=== PATIENT | female | born 1935 | race Caucasian/White ===

== ENCOUNTER 2018-05-23 11:24 | Emergency (ER) | payer MEDICARE, BC, OTHER ==
[2018-05-23] MEDS ORDERED: Sodium Chloride 0.9% 10 ML Syringe FLUSH PRN (11:54)
--- NOTE | 2018-05-23 11:54 | EDM.PDOC ---
ED HPI GENERAL MEDICAL PROBLEM - General Chief Complaint: Cardiovascular Problem Stated Complaint: LIGHTHEADED/LEGS SWOLLEN Time Seen by Provider: 05/23/18 11:27 Source of Information: Reports: Patient History Limitations: Reports: No Limitations - History of Present Illness INITIAL COMMENTS - FREE TEXT/NARRATIVE: 82-year-old female presents to the ED simply because she is not feeling well this morning. He's noticed over the last 24-36 hours that she is developed increased dyspnea on minimal exertion. She states was up a good portion of the night feeling short of breath with a nonproductive cough. Denies any central chest discomfort in the last few days. She has been traveling fairly extensively both by car and airplane for the last week and a half. She is to appreciate a appreciated increased swelling in her lower extremities feels that her vision is a bit off as well. Patient recently had her medications changed for blood pressure. She continues on amlodipine 7.5 mg a day. Valsartan was discontinued and changed to losartan within the last week. Her initial blood pressure here is elevated at 202/91. She is anxious. O2 sats are 96% on room air. She is mildly tachypneic at 22/m. Onset: Gradual Onset Date: 05/21/18 Duration: Day(s):, Getting Worse Location: Reports: Chest, Generalized (Feeling more short of breath on minimal exertion with a nonproductive cough. Increased swelling of her lower extremities but did go down a bit overnight but seemed to swell right away as soon as she was up for an hour this morning. Associated feeling of being somewhat lightheaded with blurred vision intermittently. No headache no nausea or vomiting.) Severity: Moderate Improves with: Reports: Rest Worsens with: Reports: Other (When she is up and about. Torsion such as getting dressed or having a shower seemed to make her short of breath today. She has no past history of congestive heart failure) Context: Reports: Activity. Denies: Exercise, Lifting, Sick Contact, Trauma, Other Associated Symptoms: Reports: Cough, Loss of Appetite, Malaise (Nonproductive), Shortness of Breath, Weakness (Mild), Other (Lower extremity swelling.). Denies : Confusion, Chest Pain, cough w sputum, Diaphoresis, Fever/Chills, Headaches, Nausea/Vomiting, Rash, Seizure, Syncope Treatments EXHIBIT ARTIST: Reports: Other (see below) Other Treatments EXHIBIT ARTIST: b/p meds this morning - Related Data Allergies Allergy/AdvReac Type Severity Reaction Status Date / Time No Known Allergies Allergy Verified 09/04/14 15:39 Home Meds: Home Meds amLODIPine [Norvasc] 7.5 mg PO DAILY 04/21/14 [History] Losartan [Cozaar] 50 mg PO DAILY 05/23/18 [History] Rivaroxaban [Xarelto] 15 mg PO BID #42 tablet 05/23/18 [Rx] Rivaroxaban [Xarelto] 20 mg PO DAILY #30 tablet 05/23/18 [Rx] Past Medical History Cardiovascular History: Reports: Hypertension Respiratory History: Reports: COPD (Mild COPD quit smoking 41 years ago), Pneumonia, Recurrent Gastrointestinal History: Reports: Chronic Constipation, GERD Musculoskeletal History: Reports: Arthritis, Other (See Below) Other Musculoskeletal History: bunionectomy - Past Surgical History HEENT Surgical History: Reports: Cataract Surgery, Tonsillectomy Social & Family History - Tobacco Use Smoking Status *Q: Former Smoker (Quit 40 years ago.) - Caffeine Use Caffeine Use: Reports: Coffee, Soda, Tea - Alcohol Use Alcohol Use in Last Twelve Months: No Alcohol Use Frequency: Not Used in Over 1 Year (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 Denies : Fever, Chills, Weight Loss HEENT: Reports: Glasses, Other (She has had bilateral cataract extractions and intraocular lens implants. She states since that time her vision has not been very good in her right eye.) Respiratory: Reports: Shortness of Breath, Cough. Denies: Wheezing, Pleuritic Chest Pain, Sputum, Hemoptysis (Nonproductive cough) Cardiovascular: Reports: Blood Pressure Problem, Dyspnea on Exertion (Increased lower extremity edema noted over the last 3-5 days.), Edema, Lightheadedness. Denies: Claudication (Chronic hypertension), Orthopnea, Palpitations ( Nail on minimal exertion which is abnormal for her.) Endocrine: Reports: Fatigue GI/Abdominal: Reports: Decreased Appetite. Denies: Abdominal Pain, Anorexia : Reports: Frequency, Incontinence (Some stress incontinence) Musculoskeletal: Reports: Back Pain, Joint Pain (Arthritic pain back knees) Skin: Reports: No Symptoms Neurological: Reports: Dizziness, Weakness. Denies: Headache, Pre-Existing Deficit, Seizure, Syncope, Trouble Speaking, Difficulty Walking Psychiatric: Reports: Anxiety Hematologic/Lymphatic: Reports: No Symptoms Immunologic: Reports: No Symptoms ED EXAM, GENERAL - Physical Exam Exam: See Below Exam Limited By: No Limitations General Appearance: Alert, WD/WN, Anxious, Other (Vital signs show BP now is 1 8897.) Eye Exam: Bilateral Eye: Normal Inspection (Previous bilateral cataract extractions and intraocular lens implants.) Throat/Mouth: Normal Inspection, Normal Lips, Normal Oropharynx, Other Head: Atraumatic, Normocephalic Neck: Normal Inspection (Tongue is moist.), Limited Range of Motion, Tender Lateral (Mild arthritic changes in her cervical spine on palpation bilaterally.) Respiratory/Chest: Normal Breath Sounds, Respiratory Distress (She has mild tachypnea on examination.). No: Chest Non-Tender, Rales, Rhonchi, Wheezing Cardiovascular: Normal Peripheral Pulses, Regular Rate, Rhythm, No JVD, No Murmur. No: No Edema Peripheral Pulses: 1+: Posterior Tibial (L), Posterior Tibial (R), Dorsalis Pedis (L), Dorsalis Pedis (R) GI/Abdominal: Normal Bowel Sounds, Soft, Non-Tender, No Organomegaly, No Abnormal Bruit, No Mass, Pelvis Stable. No: Tender Back Exam: Normal Inspection, Full Range of Motion. No: CVA Tenderness (L), CVA Tenderness (R) Extremities: Normal Inspection, Normal Range of Motion, Non-Tender, Pedal Edema (1-2+ pitting edema both lower extremities to mid tib-fib.), Other (On palpation of her calves and posterior knees I could not identify any DVT clinically.) Neurological: Alert, Oriented, CN II-XII Intact, Normal Cognition, No Motor/ Sensory Deficits Psychiatric: Anxious Skin Exam: Warm, Dry, Intact, Normal Color, No Rash EKG INTERPRETATION EKG Date: 05/23/18 Time: 12:00 Rhythm: NSR Rate (Beats/Min): 80 Woody: LAD-Left Woody Deviation (-41 left anterior fascicular block) P-Wave: Present (With first-degree AV block.) QRS: Other (There are Q waves in V1 and V2 suggestive of an old anteroseptal myocardial infarction. There are near Q waves in leads 3 and aVF consider a possible old inferior wall myocardial infarction.) ST-T: Normal QT: Normal EKG Interpretation Comments: Abnormal ECG Course - Vital Signs Last Recorded V/S: Last Vital Signs Temp 36.9 C 05/23/18 11:42 Pulse 78 05/23/18 11:42 Resp 20 05/23/18 11:42 BP 188/97 H 05/23/18 11:42 Pulse Ox 96 05/23/18 11:42 - Orders/Labs/Meds Orders: Active Orders 24 hr Category Date Time Status EKG Documentation Completion [RC] STAT Care 05/23/18 11:54 Active Peripheral IV Care [RC] . DIRECTED Care 05/23/18 11:55 Active Chest 1V Frontal [CR] Stat Exams 05/23/18 11:54 Taken Chest PE [Ang Chest] [CT] Stat Exams 05/23/18 12:59 Taken Venous Doppler Lwr Ext Bi [US] Stat Exams 05/23/18 14:12 Taken Peripheral IV Insertion Adult [OM.PC] Stat Oth 05/23/18 11:55 Ordered Labs: Laboratory Tests 05/23/18 05/23/18 05/23/18 Range/Units 11:45 11:45 11:45 WBC 7.09 (3.98-10.04) K/mm3 RBC 4.38 (3.98-5.22) M/mm3 Hgb 13.5 (11.2-15.7) gm/L Hct 40.5 (34.1-44.9) % MCV 92.5 (79.4-94.8) fl MCH 30.8 (25.6-32.2) pg MCHC 33.3 (32.2-35.5) g/dl RDW Std Deviation 44.7 (36.4-46.3) fL Plt Count 265 (182-369) K/mm3 MPV 8.5 L (9.4-12.3) fl Neutrophils % (Manual) 52 (40-60) % Band Neutrophils % 0 (0-10) % Lymphocytes % (Manual) 43 H (20-40) % Atypical Lymphs % 0 % Monocytes % (Manual) 5 (2-10) % Eosinophils % (Manual) 0 L (0.7-5.8) % Basophils % (Manual) 0 L (0.1-1.2) Platelet Estimate Adequate RBC Morph Comment Normal D-Dimer, Quantitative (0.19-0.50) mg/L Sodium 140 (136-145) mEq/L Potassium 4.1 (3.5-5.1) mEq/L Chloride 104 (98-107) mEq/L Carbon Dioxide 28 (21-32) mEq/L Anion Gap 12.1 (5-15) BUN 16 (7-18) mg/dL Creatinine 1.1 H (0.55-1.02) mg/dL Est Cr Clr Drug Dosing 31.72 mL/min Estimated GFR (MDRD) 48 (>60) mL/min BUN/Creatinine Ratio 14.5 (14-18) Glucose 105 (83-115) mg/dL Calcium 9.3 (8.5-10.1) mg/dL Magnesium 1.9 (1.8-2.4) mg/dl Total Bilirubin 0.8 (0.2-1.0) mg/dL AST 16 (15-37) U/L ALT 28 (14-59) U/L Alkaline Phosphatase 39 L (46-116) U/L CK-MB (CK-2) 1.3 (0-3.6) ng/ml Troponin I < 0.017 (0.00-0.056) ng/mL C-Reactive Protein < 0.2 (<1.0) mg/dL NT-Pro-B Natriuret Pep 318 (0-450) pg/mL Total Protein 6.8 (6.4-8.2) g/dl Albumin 3.6 (3.4-5.0) g/dl Globulin 3.2 gm/dL Albumin/Globulin Ratio 1.1 (1-2) TSH 3rd Generation 2.941 (0.358-3.74) uIU/mL 05/23/18 Range/Units 11:45 WBC (3.98-10.04) K/mm3 RBC (3.98-5.22) M/mm3 Hgb (11.2-15.7) gm/L Hct (34.1-44.9) % MCV (79.4-94.8) fl MCH (25.6-32.2) pg MCHC (32.2-35.5) g/dl RDW Std Deviation (36.4-46.3) fL Plt Count (182-369) K/mm3 MPV (9.4-12.3) fl Neutrophils % (Manual) (40-60) % Band Neutrophils % (0-10) % Lymphocytes % (Manual) (20-40) % Atypical Lymphs % % Monocytes % (Manual) (2-10) % Eosinophils % (Manual) (0.7-5.8) % Basophils % (Manual) (0.1-1.2) Platelet Estimate RBC Morph Comment D-Dimer, Quantitative 4.19 H (0.19-0.50) mg/L Sodium (136-145) mEq/L Potassium (3.5-5.1) mEq/L Chloride (98-107) mEq/L Carbon Dioxide (21-32) mEq/L Anion Gap (5-15) BUN (7-18) mg/dL Creatinine (0.55-1.02) mg/dL Est Cr Clr Drug Dosing mL/min Estimated GFR (MDRD) (>60) mL/min BUN/Creatinine Ratio (14-18) Glucose (83-115) mg/dL Calcium (8.5-10.1) mg/dL Magnesium (1.8-2.4) mg/dl Total Bilirubin (0.2-1.0) mg/dL AST (15-37) U/L ALT (14-59) U/L Alkaline Phosphatase (46-116) U/L CK-MB (CK-2) (0-3.6) ng/ml Troponin I (0.00-0.056) ng/mL C-Reactive Protein (<1.0) mg/dL NT-Pro-B Natriuret Pep (0-450) pg/mL Total Protein (6.4-8.2) g/dl Albumin (3.4-5.0) g/dl Globulin gm/dL Albumin/Globulin Ratio (1-2) TSH 3rd Generation (0.358-3.74) uIU/mL Meds: Medications Discontinued Medications Generic Name Dose Route Start Last Admin Trade Name Freq PRN Reason Stop Dose Admin Sodium Chloride 100 mls @ 60 mls/hr 05/23/18 13:15 05/23/18 13:18 Normal Saline IV 60 mls/hr ASDIRECTED JEEVAN Administration Iopamidol 100 ml 05/23/18 13:06 05/23/18 13:18 Isovue-370 (76%) IVPUSH 05/23/18 13:07 70 ml ONETIME ONE Administration Rivaroxaban 15 mg 05/23/18 16:10 05/23/18 16:16 Xarelto PO 05/23/18 16:11 15 mg ONETIME ONE Administration Sodium Chloride 10 ml 05/23/18 11:54 05/23/18 16:07 Saline Flush FLUSH 10 ml ASDIRECTED PRN Administration Keep Vein Open Sodium Chloride 10 ml 05/23/18 13:06 05/23/18 13:18 Saline Flush FLUSH 05/23/18 13:07 10 ml ONETIME ONE Administration - Radiology Interpretation Free Text/Narrative:: 82-year-old female presents to the ED for assessment of a sense of not feeling well. She feels a little lightheaded dizzy. She feels a little blurred vision. She is aware of it development of a nonproductive cough over the last 24 hours with shortness of breath on minimal exertion. Associated increased dependent edema. Of note her and her just came back from [place] traveling both by plane and vehicle over the last [address] her at mild risk for DVT. She has no past history of the same. No history of congestive failure. Only changed her medications have been valsartan discontinuation and replacement with losartan 50 mg a day. Is within the last week. She didn't sleep very well because of feeling more short of breath than normal and awakening i.e. orthopnea. Denies any hemoptysis. No pleuritic chest pain. Examination reveals her to be tachypnea at 20-22/m with O2 sats of 96%. Lungs do sound clear to stage percussion with no elevated JVD. She does have mild dependent edema seen her lower extremities mid tib-fib. Plan routine labs to include a d-dimer and cardiac workup. One view chest x-ray and ECG to be done. Peripheral IV lock only at this time. I suspect she will need a dose Lasix. - Re-Assessments/Exams Free Text/Narrative Re-Assessment/Exam: 05/23/18 12:26 portable chest x-ray is completed. Shows mildly hyperinflated lung enriquez. Cardiac silhouette is within normal limits. She does appear to have a very prominent mid thoracic aorta suspect possible aneurysm. Lab just called back with the critical value as well. Her d-dimer is 4.19. Will await her creatinine level before proceeding with CT pulmonary angiogram 05/23/18 12:58 Labs are back. WBC is 7.09 with 52% neutrophils and no band cells reported. Hemoglobin is 13.5 with hematocrit of 40.5. Platelet count is normal at 265,000. D-dimer is elevated at 4.19. Sodium 140 with potassium of 4.1. Cord 104 with a bicarbonate of 28. Anion gap is 12.1. BUN is 16 with a creatinine of 1.1. GFR is estimated to be 48. Glucose is 105. Calcium is 9.3. Magnesium 1.9. Liver function is normal. Cardiac markers are normal. C-reactive protein is less than 0.2. BNP is 318. TSH is normal at 2.9. Patient was appraised of the findings. She is agreeable to CT pulmonary angiogram completed. No previous problems with IV contrast Patient will now proceed to CT for CT pulmonary angiogram due to the elevated d-dimer and symptoms that would support a diagnosis of DVT. On further questioning of the patient she did have some pain behind her knee 3 days ago on the left side. 05/23/18 14:13 CT pulmonary and gram has been completed. There is no evidence of pulmonary emboli. There is aneurysmal dilatation of the ascending thoracic aorta measuring up to 3.3 cm. This was appreciated on plain films. There is also aneurysmal dilatation of the suprarenal abdominal aorta however this is only partially imaged. The vasculature demonstrates diffuse moderate atherosclerotic calcification. The lungs reveal a 5 mm pulmonary nodule within the left upper lobe posteriorly 5 mm nodule noted within the right lower lobe as well. Several other tiny nodules are noted bilaterally. The lungs are hyperinflated consistent with diffuse underlying small airways disease. A letter changes are present within both lung bases. The heart demonstrates moderate diffuse enlargement. In side bilateral thyroid nodules are present measuring up to 9 mm on the right. Thoracic spine demonstrates moderate degenerative changes at multiple levels. Current BP is 174/92. O2 sats are 94% on room air. Since I am no way of explaining the elevated d-dimer I'm going to have ultrasound of both lower extremity venous systems to rule out a DVT. 05/23/18 16:11 Doppler ultrasound of the right venous system in her leg is normal. Doppler ultrasound on the left however did identify clot in the posterior tibial vein extending up to the popliteal vein. His would explain her current symptoms. I suspect she still has been showering some emboli to cause dyspnea on exertion. The question then is to how long to treat her with Xarelto to 3 months versus 6 months. Impression is that she should probably be treated for 6 months. Suture travel I would advise a baby aspirin twice daily with Prilosec as well to prevent a clot from occurring in the future. Patient will be placed on Xarelto 20 mg twice a day for the next 3 weeks and then 20 mg once daily. Of note I forgot to advise the patient of the findings on CT of a thoracic aortic aneurysm of 3.3 cm which at her age would not necessarily be repairable. However the radiologist commented that he identified that there is probably mild aneurysmal dilatation of the superior renal portion of the aorta as well which should be further imaged by way of ultrasound and followed on a yearly basis. I will leave this up to her primary care physician. Departure - Departure Time of Disposition: 16:13 Disposition: Home, Self-Care 01 Condition: Fair Clinical Impression: Dyspnea on exertion, Descending thoracic aortic aneurysm, Suprarenal aortic aneurysm DVT (deep venous thrombosis) Qualifiers: DVT location: lower extremity Affected thrombotic vein of extremity: popliteal Chronicity: acute Laterality: left Qualified Code(s): I82.432 - Acute embolism and thrombosis of left popliteal vein Prescriptions: Rivaroxaban [Xarelto] 15 mg PO BID #42 tablet Rivaroxaban [Xarelto] 20 mg PO DAILY #30 tablet Instructions: Rivaroxaban oral tablets, Deep Vein Thrombosis Referrals: Gamaliel Jacobs MD [Primary Care Provider] - Forms: ED Department Discharge Additional Instructions: Evaluation in the emergency room today in regards to presentation due to just generally not feeling well. Recognize shortness of breath on minimal exertion. Feeling much more fatigued than normal. Recent travel history felt to be contributing to increased swelling in the lower extremities. Recently reported pain behind her left knee 3 days ago as well. Lab tests revealed no evidence of any heart failure or any other major abnormalities other than an elevated d- dimer which is a measuring stick for clotting. Due to your symptom process decision made to proceed with CT pulmonary and gram to rule out a clot within your lungs. This tests proved to be negative for any major clots in the central portions of the major lung arteries. However ultrasound done of both legs revealed a clot within the posterior aspect of your left leg i.e. in the calf and behind her left knee that would explain the elevated d-dimer. I strongly suspect that part of the clot have been breaking off over the last few days and going through the lungs and that's what's creating your shortness of breath on minimal exertion. Treatment is therefore a medication called Xarelto which is a blood thinner to prevent further clot formation and propagation of clot. Treatment is 15 mg twice daily for the first 3 weeks and then 20 mg once daily for another 5 months. Follow-up with your personal care physician within the next 7-10 days time. Continue all current medications in regards to blood pressure at this time. Her blood pressure seems to be running is still a bit on the high side and you may need further adjustments to your blood pressure medication. Due to the stress of today I did not feel it was prudent to change blood pressure medications until current stress situation settles down. - My Orders Last 24 Hours: My Active Orders 05/23/18 11:54 EKG Documentation Completion [RC] STAT Chest 1V Frontal [CR] Stat 05/23/18 11:55 Peripheral IV Care [RC] . DIRECTED Peripheral IV Insertion Adult [OM.PC] Stat 05/23/18 12:59 Chest PE [Ang Chest] [CT] Stat 05/23/18 14:12 Venous Doppler Lwr Ext Bi [US] Stat - Assessment/Plan Last 24 Hours: My Active Orders 05/23/18 11:54 EKG Documentation Completion [RC] STAT Chest 1V Frontal [CR] Stat 05/23/18 11:55 Peripheral IV Care [RC] . DIRECTED Peripheral IV Insertion Adult [OM.PC] Stat 05/23/18 12:59 Chest PE [Ang Chest] [CT] Stat 05/23/18 14:12 Venous Doppler Lwr Ext Bi [US] Stat
[2018-05-23] MEDS ORDERED: Iopamidol 755 Mg/ML 100 ML Bottle IVPUSH ONE (13:06)
[2018-05-23] MEDS ORDERED: Sodium Chloride 0.9% 10 ML Syringe FLUSH ONE (13:06)
[2018-05-23] MEDS ORDERED: Sodium Chloride 0.9% 100 ML IV SCH (13:15)
[2018-05-23] MEDS ORDERED: Rivaroxaban 10 MG Tab PO ONE (16:10)
== END 2018-05-23 16:30 | disposition home or self-care (01) ==
LOC: JD.ED 11:24
DX: I82.432 Acute embolism and thrombosis of left popliteal vein (principal); I71.2 Thoracic aortic aneurysm, without rupture; I10 Essential (primary) hypertension; J44.9 Chronic obstructive pulmonary disease, unspecified; Z87.891 Personal history of nicotine dependence; Z79.899 Other long term (current) drug therapy
CPT/HCPCS: 36415; 71045; 71275; 80053; 82553; 83735; 83880; 84443; 84484; 85007; 85027; 85379; 86140; 93005; 93970; 99285; A9270; J7030; J7050; Q9967

== ENCOUNTER 2018-05-25 14:34 | Emergency (ER) | payer MEDICARE, BC, OTHER ==
[2018-05-25] MEDS ORDERED: Sodium Chloride 0.9% 10 ML Syringe FLUSH PRN (14:44)
[2018-05-25] MEDS ORDERED: HYDROmorphone 0.5 MG/0.5 ML SYRINGE IVPUSH ONE (15:14)
[2018-05-25] MEDS ORDERED: Ondansetron 4 MG/2 ML SDV IVPUSH ONE (15:14)
--- NOTE | 2018-05-25 15:14 | EDM.PDOC ---
ED HPI GENERAL MEDICAL PROBLEM - General Chief Complaint: Neurological Problem Stated Complaint: SHAKY/FEVER Time Seen by Provider: 05/25/18 14:44 Source of Information: Reports: Patient History Limitations: Reports: No Limitations - History of Present Illness INITIAL COMMENTS - FREE TEXT/NARRATIVE: The patient presents with a severe headache and shaking. Her last time known well was 05/24/18 at 11 am. She was seen here 2 days ago and was diagnosed with a DVT in her left leg. She had been traveling by plane and car from [place] and did not feel well. She has been more short of breath for the past few days. She had a CT of her chest, x-ray, labs and an US of her legs. She had no pneumonia or PE but she did have the DVT. She was put on xarelto and discharged home. She then developed shaking on both sides of her body but more on the left. She has generalized weakness and she feels like she may have a fever. She has no cough, chest pain, abdominal pain, nausea or vomiting. She still has some shortness of breath at times. She has no dysuria. Onset: Gradual Duration: Day(s): (2) Location: Reports: Head Quality: Reports: Sharp Severity: Severe Improves with: Reports: None Worsens with: Reports: None Associated Symptoms: Reports: Fever/Chills, Headaches, Nausea/Vomiting, Shortness of Breath. Denies: Confusion, Chest Pain, Cough Headache Pain Score (Numeric/FACES): 10 - Related Data Allergies Allergy/AdvReac Type Severity Reaction Status Date / Time No Known Allergies Allergy Verified 05/25/18 14:52 Home Meds: Home Meds amLODIPine [Norvasc] 7.5 mg PO DAILY 04/21/14 [History] Losartan [Cozaar] 50 mg PO DAILY 05/23/18 [History] Rivaroxaban [Xarelto] 15 mg PO BID #42 tablet 05/23/18 [Rx] Rivaroxaban [Xarelto] 20 mg PO DAILY #30 tablet 05/23/18 [Rx] Past Medical History Cardiovascular History: Reports: Hypertension Respiratory History: Reports: COPD (Mild COPD quit smoking 41 years ago), Pneumonia, Recurrent Gastrointestinal History: Reports: Chronic Constipation, GERD Musculoskeletal History: Reports: Arthritis, Other (See Below) Other Musculoskeletal History: bunionectomy - Past Surgical History HEENT Surgical History: Reports: Cataract Surgery, Tonsillectomy Social & Family History - Caffeine Use Caffeine Use: Reports: Coffee, Soda, Tea - Living Situation & Occupation Living situation: Reports: Occupation: Retired ED ROS GENERAL - Review of Systems Review Of Systems: See Below Constitutional: Reports: Fever, Chills HEENT: Reports: No Symptoms Respiratory: Reports: Shortness of Breath Cardiovascular: Reports: No Symptoms Endocrine: Reports: No Symptoms GI/Abdominal: Reports: No Symptoms : Reports: No Symptoms Musculoskeletal: Reports: No Symptoms Skin: Reports: No Symptoms Neurological: Reports: Headache, Other (shaking) ED EXAM, NEURO - Physical Exam Exam: See Below Exam Limited By: No Limitations General Appearance: Alert, No Apparent Distress Ears: Normal External Exam Nose: Normal Inspection Head Exam: Atraumatic, Normocephalic Neck: Normal Inspection Respiratory/Chest: No Respiratory Distress, Lungs Clear, Normal Breath Sounds Cardiovascular: Regular Rate, Rhythm, No Edema, No Murmur GI/Abdominal: Soft, Non-Tender, No Organomegaly, No Mass Neurological: Alert, Other (The patient has generalized shaking. She has generalized weakness. She has abnormal finger to nose with both arms but the left was slightly worse. She had slighty worse heal to tompkins on the left.) EKG INTERPRETATION EKG Date: 05/25/18 Time: 14:50 Rhythm: NSR Rate (Beats/Min): 84 [place]: LAD-Left [place] Deviation P-Wave: Present QRS: Normal ST-T: Normal QT: Normal CT/PQ Interval: 1st degree HB EKG Interpretation Comments: Q waves in the anterior leads Course - Vital Signs Last Recorded V/S: Last Vital Signs Temp 98 F 05/25/18 14:56 Pulse 86 05/25/18 14:56 Resp 24 H 05/25/18 14:56 BP 206/109 H 05/25/18 14:56 Pulse Ox 96 05/25/18 14:56 - Orders/Labs/Meds Orders: Active Orders 24 hr Category Date Time Status Blood Glucose Check, Bedside [RC] ONETIME Care 05/25/18 14:46 Active Cardiac Monitoring [RC] . DIRECTED Care 05/25/18 14:44 Active EKG Documentation Completion [RC] STAT Care 05/25/18 14:45 Active Oxygen Therapy [RC] PRN Care 05/25/18 14:44 Active Peripheral IV Care [RC] . DIRECTED Care 05/25/18 14:45 Active Chest 1V Frontal [CR] Stat Exams 05/25/18 14:45 Taken Head wo Cont [CT] Stat Exams 05/25/18 14:45 Taken UA W/MICROSCOPIC [URIN] Stat Lab 05/25/18 15:20 Ordered Sodium Chloride 0.9% [Saline Flush] Med 05/25/18 14:44 Active 10 ml FLUSH ASDIRECTED PRN Peripheral IV Insertion Adult [OM.PC] Stat Oth 05/25/18 14:44 Ordered Medication Orders Sodium Chloride (Saline Flush) 10 ml FLUSH ASDIRECTED PRN PRN Reason: Keep Vein Open Last Admin: 05/25/18 15:41 Dose: 10 ml Labs: Laboratory Tests 05/25/18 05/25/18 05/25/18 Range/Units 14:43 14:45 14:45 WBC 8.70 (3.98-10.04) K/mm3 RBC 4.83 (3.98-5.22) M/mm3 Hgb 14.8 (11.2-15.7) gm/L Hct 44.8 (34.1-44.9) % MCV 92.8 (79.4-94.8) fl MCH 30.6 (25.6-32.2) pg MCHC 33.0 (32.2-35.5) g/dl RDW Std Deviation 45.5 (36.4-46.3) fL Plt Count 294 (182-369) K/mm3 MPV 8.3 L (9.4-12.3) fl Neut % (Auto) 57.9 (34.0-71.1) % Lymph % (Auto) 24.1 (19.3-51.7) % [place] % (Auto) 14.0 H (4.7-12.5) % Eos % (Auto) 3.4 (0.7-5.8) Baso % (Auto) 0.3 (0.1-1.2) % Neut # (Auto) 5.02 (1.56-6.13) K/mm3 Lymph # (Auto) 2.10 (1.18-3.74) K/mm3 [place] # (Auto) 1.22 H (0.24-0.36) K/mm3 Eos # (Auto) 0.30 (0.04-0.36) K/mm3 Baso # (Auto) 0.03 (0.01-0.08) K/mm3 PT (9.5-12.1) SECONDS INR APTT (24-31) SECONDS Sodium 137 (136-145) mEq/L Potassium 4.2 (3.5-5.1) mEq/L Chloride 98 (98-107) mEq/L Carbon Dioxide 28 (21-32) mEq/L Anion Gap 15.2 H (5-15) BUN 18 (7-18) mg/dL Creatinine 1.2 H (0.55-1.02) mg/dL Est Cr Clr Drug Dosing 34.42 mL/min Estimated GFR (MDRD) 43 (>60) mL/min BUN/Creatinine Ratio 15.0 (14-18) Glucose 97 (83-115) mg/dL POC Glucose 97 (83-110) mg/dL Calcium 10.2 H (8.5-10.1) mg/dL Total Bilirubin 1.0 (0.2-1.0) mg/dL AST 27 (15-37) U/L ALT 36 (14-59) U/L Alkaline Phosphatase 43 L (46-116) U/L Troponin I < 0.017 (0.00-0.056) ng/mL Total Protein 7.8 (6.4-8.2) g/dl Albumin 4.1 (3.4-5.0) g/dl Globulin 3.7 gm/dL Albumin/Globulin Ratio 1.1 (1-2) Urine Color (Yellow) Urine Appearance (Clear) Urine pH (5.0-8.0) Ur Specific [place] (1.005-1.030) Urine Protein (Negative) Urine Glucose (UA) (Negative) Urine Ketones (Negative) Urine Occult Blood (Negative) Urine Nitrite (Negative) Urine Bilirubin (Negative) Urine Urobilinogen (0.2-1.0) Ur Leukocyte Esterase (Negative) Urine RBC (0-5) /hpf Urine WBC (0-5) /hpf Ur Epithelial Cells (0-5) /hpf Urine Bacteria (FEW) /hpf Urine Mucus (FEW) /hpf 05/25/18 05/25/18 Range/Units 15:05 15:20 WBC (3.98-10.04) K/mm3 RBC (3.98-5.22) M/mm3 Hgb (11.2-15.7) gm/L Hct (34.1-44.9) % MCV (79.4-94.8) fl MCH (25.6-32.2) pg MCHC (32.2-35.5) g/dl RDW Std Deviation (36.4-46.3) fL Plt Count (182-369) K/mm3 MPV (9.4-12.3) fl Neut % (Auto) (34.0-71.1) % Lymph % (Auto) (19.3-51.7) % [place] % (Auto) (4.7-12.5) % Eos % (Auto) (0.7-5.8) Baso % (Auto) (0.1-1.2) % Neut # (Auto) (1.56-6.13) K/mm3 Lymph # (Auto) (1.18-3.74) K/mm3 [place] # (Auto) (0.24-0.36) K/mm3 Eos # (Auto) (0.04-0.36) K/mm3 Baso # (Auto) (0.01-0.08) K/mm3 PT 12.4 H (9.5-12.1) SECONDS INR 1.14 APTT 33 H (24-31) SECONDS Sodium (136-145) mEq/L Potassium (3.5-5.1) mEq/L Chloride (98-107) mEq/L Carbon Dioxide (21-32) mEq/L Anion Gap (5-15) BUN (7-18) mg/dL Creatinine (0.55-1.02) mg/dL Est Cr Clr Drug Dosing mL/min Estimated GFR (MDRD) (>60) mL/min BUN/Creatinine Ratio (14-18) Glucose (83-115) mg/dL POC Glucose (83-110) mg/dL Calcium (8.5-10.1) mg/dL Total Bilirubin (0.2-1.0) mg/dL AST (15-37) U/L ALT (14-59) U/L Alkaline Phosphatase (46-116) U/L Troponin I (0.00-0.056) ng/mL Total Protein (6.4-8.2) g/dl Albumin (3.4-5.0) g/dl Globulin gm/dL Albumin/Globulin Ratio (1-2) Urine Color Yellow (Yellow) Urine Appearance Clear (Clear) Urine pH 7.0 (5.0-8.0) Ur Specific [place] 1.015 (1.005-1.030) Urine Protein Negative (Negative) Urine Glucose (UA) Negative (Negative) Urine Ketones Negative (Negative) Urine Occult Blood Negative (Negative) Urine Nitrite Negative (Negative) Urine Bilirubin Negative (Negative) Urine Urobilinogen 0.2 (0.2-1.0) Ur Leukocyte Esterase Negative (Negative) Urine RBC Not seen (0-5) /hpf Urine WBC 0-5 (0-5) /hpf Ur Epithelial Cells 0-5 (0-5) /hpf Urine Bacteria Not seen (FEW) /hpf Urine Mucus Not seen (FEW) /hpf Meds: Medications Generic Name Dose Route Start Last Admin Trade Name Freq PRN Reason Stop Dose Admin Sodium Chloride 10 ml 05/25/18 14:44 05/25/18 15:41 Saline Flush FLUSH 10 ml ASDIRECTED PRN Administration Keep Vein Open Discontinued Medications Generic Name Dose Route Start Last Admin Trade Name Freq PRN Reason Stop Dose Admin Hydromorphone HCl 0.5 mg 05/25/18 15:14 05/25/18 15:41 Dilaudid IVPUSH 05/25/18 15:15 0.5 mg ONETIME ONE Administration Ondansetron HCl 4 mg 05/25/18 15:14 05/25/18 15:39 Zofran IVPUSH 05/25/18 15:15 4 mg ONETIME ONE Administration - Re-Assessments/Exams Free Text/Narrative Re-Assessment/Exam: 05/25/18 15:23 I ordered an IV saline lock, EKG, CT of her head, labs, UA, zofran 4mg IV and dilaudid 0.5mg IV. 05/25/18 16:12 Her CBC looks good. Her PT was elevated at 12.4. Her PTT is elevated at 33. Her anion gap is elevated at 15.2. Her creatinine is slightly elevated at 1.2. Her troponin is negative. Her UA shows no UTI. Her CXR does not show an infiltrated. Her CT shows nothing acute. I did give her some zofran 4mg IV for nausea and a dose of dilaudid for her headache. He blood pressure is better at 144 systolic. I am concerned she may have had a stroke. She will need further work up such as MRI of her brain and US of her carotids and echo. We are limited in those resources. She again is outside the range for thrombolytics. She was last known well 2 days ago at 11am on 05/24/18. 05/25/18 16:16 Departure - Departure Time of Disposition: 16:20 Disposition: DC/Tfer to Acute Hospital 02 Condition: Fair Clinical Impression: Descending thoracic aortic aneurysm, Suprarenal aortic aneurysm DVT (deep venous thrombosis) Qualifiers: DVT location: lower extremity Affected thrombotic vein of extremity: popliteal Chronicity: acute Laterality: left Qualified Code(s): I82.432 - Acute embolism and thrombosis of left popliteal vein CVA (cerebral vascular accident) Qualifiers: CVA mechanism: unspecified Qualified Code(s): I63.9 - Cerebral infarction, unspecified - Discharge Information Referrals: Gamaliel Jacobs MD [Primary Care Provider] - Forms: ED Department Discharge - My Orders Last 24 Hours: My Active Orders 05/25/18 14:44 Cardiac Monitoring [RC] . DIRECTED Oxygen Therapy [RC] PRN Sodium Chloride 0.9% [Saline Flush] 10 ml FLUSH ASDIRECTED PRN Peripheral IV Insertion Adult [OM.PC] Stat 05/25/18 14:45 EKG Documentation Completion [RC] STAT Peripheral IV Care [RC] . DIRECTED Chest 1V Frontal [CR] Stat Head wo Cont [CT] Stat 05/25/18 14:46 Blood Glucose Check, Bedside [RC] ONETIME 05/25/18 15:20 UA W/MICROSCOPIC [URIN] Stat - Assessment/Plan Last 24 Hours: My Active Orders 05/25/18 14:44 Cardiac Monitoring [RC] . DIRECTED Oxygen Therapy [RC] PRN Sodium Chloride 0.9% [Saline Flush] 10 ml FLUSH ASDIRECTED PRN Peripheral IV Insertion Adult [OM.PC] Stat 05/25/18 14:45 EKG Documentation Completion [RC] STAT Peripheral IV Care [RC] . DIRECTED Chest 1V Frontal [CR] Stat Head wo Cont [CT] Stat 05/25/18 14:46 Blood Glucose Check, Bedside [RC] ONETIME 05/25/18 15:20 UA W/MICROSCOPIC [URIN] Stat
--- NOTE | 2018-05-28 08:51 | CT ---
Head CT Technique: Multiple axial sections through the brain were obtained. Intravenous contrast was not utilized. Comparison: No prior intracranial imaging. Findings: Ventricles along with basal cisterns and sulci over the convexities appear within normal limits for the patient's age. No abnormal parenchymal densities are seen. No evidence of intracranial hemorrhage. No midline shift or mass effect is seen. Bone window settings were reviewed which show the visualized sinuses to appear clear. No acute calvarial abnormality is seen. Impression: 1. Nothing acute is appreciated on noncontrast head CT study. Diagnostic code #1 I agree with preliminary report from [facility], finalized on 05/25/18, 4:12 PM Central Time
--- NOTE | 2018-05-28 08:51 | CR ---
Chest: Portable view of the chest was obtained. Comparison: Prior chest x-ray of 05/23/18. Heart size appears within normal limits for portable technique. Tortuous thoracic aorta is seen. Slight linear density within the left midlung most likely representing atelectasis or scarring. Lungs otherwise are clear without acute parenchymal change. Bony structures are grossly intact. Impression: 1. Nothing acute is seen on portable chest x-ray. Diagnostic code #2
== END 2018-05-25 17:00 ==
LOC: JD.ED 14:34
DX: I63.9 Cerebral infarction, unspecified (principal); I82.432 Acute embolism and thrombosis of left popliteal vein; I71.2 Thoracic aortic aneurysm, without rupture; I71.9 Aortic aneurysm of unspecified site, without rupture; J44.9 Chronic obstructive pulmonary disease, unspecified; I10 Essential (primary) hypertension; K21.9 Gastro-esophageal reflux disease without esophagitis; Z79.899 Other long term (current) drug therapy
CPT/HCPCS: 36415; 70450; 71045; 80053; 81001; 82962; 84484; 85025; 85610; 85730; 93005; 96374; 96375; 99285; J1170; J2405; J7050

== ENCOUNTER 2018-10-15 21:00 | Emergency (ER) | payer MEDICARE, BC ==
[2018-10-15] MEDS ORDERED: Ibuprofen 600 MG Tab PO ONE (21:33)
[2018-10-15] MEDS ORDERED: Triamcinolone Acetonide 40 MG/ML 1 ML MDV INJECT ONE (22:56)
[2018-10-15] MEDS ORDERED: Lidocaine 1% 10 ML MDV INJECT ONE (22:57)
--- NOTE | 2018-10-15 23:43 | EDM.PDOC ---
ED HPI GENERAL MEDICAL PROBLEM - General Chief Complaint: Lower Extremity Injury/Pain Stated Complaint: LEFT HIP PAIN Time Seen by Provider: 10/15/18 21:17 Source of Information: Reports: Patient, Family History Limitations: Reports: No Limitations - History of Present Illness INITIAL COMMENTS - FREE TEXT/NARRATIVE: The patient presents with left hip pain. This pain started yesterday when she was sleeping. She did not hurt her hip in any way that she knows of. She has a history of bursitis in that hip. She has a history of arthritis. She can bear weight but she has to walk with a walker. Onset: Gradual Duration: Day(s): (Last night) Location: Reports: Lower Extremity, Left (hip) Quality: Reports: Sharp Severity: Moderate Improves with: Reports: Immobilization Worsens with: Reports: Movement Associated Symptoms: Reports: No Other Symptoms Left Hip Pain Score (Numeric/FACES): 10 - Related Data Allergies Allergy/AdvReac Type Severity Reaction Status Date / Time No Known Allergies Allergy Verified 10/15/18 21:21 Home Meds: Home Meds amLODIPine [Norvasc] 7.5 mg PO DAILY 04/21/14 [History] Losartan [Cozaar] 50 mg PO DAILY 05/23/18 [History] Rivaroxaban [Xarelto] 15 mg PO BID #42 tablet 05/23/18 [Rx] Rivaroxaban [Xarelto] 20 mg PO DAILY #30 tablet 05/23/18 [Rx] Past Medical History Cardiovascular History: Reports: Hypertension Respiratory History: Reports: COPD, Pneumonia, Recurrent Gastrointestinal History: Reports: Chronic Constipation, GERD [employer] History: Reports: Musculoskeletal History: Reports: Arthritis, Other (See Below) Other Musculoskeletal History: bunionectomy - Past Surgical History HEENT Surgical History: Reports: Cataract Surgery, Tonsillectomy Cardiovascular Surgical History: Reports: Other (See Below) Other Cardiovascular Surgeries/Procedures: carotid artery surgery Social & Family History - Family History Family Medical History: Noncontributory - Tobacco Use Smoking Status *Q: Former Smoker Used Tobacco, but Quit: Yes Month/Year Tobacco Last Used: 30 years ago - Caffeine Use Caffeine Use: Reports: Coffee - Recreational Drug Use Recreational Drug Use: No - Living Situation & Occupation Living situation: Reports: Occupation: Retired Review of Systems - Review of Systems Review Of Systems: See Below Constitutional: Reports: No Symptoms Eyes: Reports: No Symptoms Ears: Reports: No Symptoms Nose: Reports: No Symptoms Mouth/Throat: Reports: No Symptoms Respiratory: Reports: No Symptoms Cardiovascular: Reports: No Symptoms GI/Abdominal: Reports: No Symptoms Genitourinary: Reports: No Symptoms Musculoskeletal: Reports: Other (left hip pain) ED EXAM, GENERAL - Physical Exam Exam: See Below Exam Limited By: No Limitations General Appearance: Alert, No Apparent Distress Ears: Normal External Exam Nose: Normal Inspection Head: Atraumatic, Normocephalic Neck: Normal Inspection Respiratory/Chest: No Respiratory Distress, Lungs Clear, Normal Breath Sounds Cardiovascular: Regular Rate, Rhythm, No Edema, No Murmur GI/Abdominal: Soft, Non-Tender, No Organomegaly, No Mass Extremities: Other (Pain upon palpation to the greater trochanter and pain with internal and external rotation of the left hip. Good sensation and pulses distally.) Course - Vital Signs Last Recorded V/S: Last Vital Signs Temp 97.2 F 10/15/18 21: Pulse 76 10/15/18 21:19 Resp 16 10/15/18 21:19 BP 144/92 H 10/15/18 21:19 Pulse Ox 95 10/15/18 21:19 - Orders/Labs/Meds Orders: Active Orders 24 hr Category Date Time Status Hip Min 2V or 3V w Pelvis Lt [CR] Stat Exams 10/15/18 21:32 Taken Meds: Medications Discontinued Medications Generic Name Dose Route Start Last Admin Trade Name Yoandyq PRN Reason Stop Dose Admin Ibuprofen 600 mg 10/15/18 21:33 10/15/18 21:44 Motrin PO 10/15/18 21:34 600 mg ONETIME ONE Administration Lidocaine HCl 10 ml 10/15/18 22:57 10/15/18 23:12 Xylocaine 1% INJECT 10/15/18 22:58 10 ml ONETIME ONE Administration Triamcinolone Acetonide 40 mg 10/15/18 22:56 10/15/18 23:12 Kenalog-40 INJECT 10/15/18 22:57 40 mg ONETIME ONE Administration - Re-Assessments/Exams Free Text/Narrative Re-Assessment/Exam: 10/15/18 23:41 I ordered an x-ray. There is no fracture but she does have arthritis. I did an injection to her greater trochanteric bursa. I cleaned the area with chlorprep. I then used 3ccs of lidocaine and 40mg of kenalog and injected into her left greater trochanteric bursa. There was no complications and she tolerated the procedure well. I will get her up in a little bit and see how she does. 10/15/18 23:52 She did get up and go to the bathroom. I will get her going. Departure - Departure Time of Disposition: 23:55 Disposition: Home, Self-Care 01 Condition: Good Clinical Impression: Left hip pain, Greater trochanteric bursitis of left hip Osteoarthritis of left hip Qualifiers: Osteoarthritis type: primary Qualified Code(s): M16.12 - Unilateral primary osteoarthritis, left hip - Discharge Information *PRESCRIPTION DRUG MONITORING PROGRAM REVIEWED*: No *COPY OF PRESCRIPTION DRUG MONITORING REPORT IN PATIENT [place]: No Referrals: Gamaliel Jacobs MD [Primary Care Provider] - Jose Ireland MD [Physician] - 1 Week Forms: ED Department Discharge Additional Instructions: Take tylenol every 4 to 6 hours as needed for pain. If that does not help, try the ultram every 6 hours as needed for pain. Follow up with Dr Ireland. Please return if you are worse. - My Orders Last 24 Hours: My Active Orders 10/15/18 21:32 Hip Min 2V or 3V w Pelvis Lt [CR] Stat - Assessment/Plan Last 24 Hours: My Active Orders 10/15/18 21:32 Hip Min 2V or 3V w Pelvis Lt [CR] Stat
--- NOTE | 2018-10-16 07:31 | CR ---
Pelvis and left hip: AP view of the pelvis was obtained as well as AP and frog-leg lateral views of the left hip. Comparison: No prior study. Joint spaces within both hips are maintained. Sacroiliac joints are within normal limits. Bony structures are osteopenic. No discrete fracture or other bony abnormality is seen. Impression: 1. Osteopenia. No additional abnormality is seen on AP pelvis or on two-view left hip exam. Diagnostic code #2
== END 2018-10-16 | disposition home or self-care (01) ==
LOC: JD.ED 21:00
DX: M70.62 Trochanteric bursitis, left hip (principal); I10 Essential (primary) hypertension; J44.9 Chronic obstructive pulmonary disease, unspecified; Z87.891 Personal history of nicotine dependence; Z79.899 Other long term (current) drug therapy
CPT/HCPCS: 73502; 96372; 99283; A9270; J2001; J3301

== ENCOUNTER 2019-09-12 05:16 | Emergency (ER) | payer MEDICARE, BC ==
[2019-09-12] MEDS ORDERED: Acetylcysteine 20% 200 MG/ML 4 ML Nebulizer Soln SDV NEB ONE (06:07)
[2019-09-12] MEDS ORDERED: Albuterol 0.083% 2.5 MG/3 ML Neb Soln NEB ONE (06:08)
--- NOTE | 2019-09-12 06:15 | EDM.PDOC ---
ED HPI GENERAL MEDICAL PROBLEM - General Chief Complaint: Respiratory Problem Stated Complaint: COUGH Time Seen by Provider: 09/12/19 05:49 Source of Information: Reports: Patient History Limitations: Reports: No Limitations - History of Present Illness INITIAL COMMENTS - FREE TEXT/NARRATIVE: This is an 84-year-old female. She states that she has been sick for the last couple of months. Apparently she has been having increasing coughing that is quite distressing to her. 2 weeks ago she went to the walk-in clinic was diagnosed with a bacterial bronchitis and placed on a Z-Van this did not help her coughing. She then comes to the ER about a week ago or so had a chest x- ray that was normal and was placed on doxycycline. She is taken all the doxycycline and it has not helped her. She went to see Dr. Jacobs who did a CAT scan of her chest and they saw a nodule they did a PET scan and said that the nodule was nothing to worry about. She was also checked out by a washing machine repairer stating that her heart was fine. She is on albuterol nebulizers she is on Tessalon Perles and she is taking Mucinex and she is still coughing. She says the coughing has made her sore in her chest and abdomen and she cannot sleep. The reason she is here now is because she could not sleep last night due to the coughing. Has been drinking lots of fluids to try to thin her secretions tertium cough the phlegm up but it has not been working. She gives a history 10 years ago where she had a similar problem with coughing was finally sent to a scheduling representative and they had to bronchoscope her and they found thick mucus in her lungs that was the reason she was coughing and they cleaned it all out and her cough resolved. Chest Pain Score (Numeric/FACES): 6 - Related Data Allergies Allergy/AdvReac Type Severity Reaction Status Date / Time No Known Allergies Allergy Verified 09/12/19 05:38 Home Meds: Home Meds amLODIPine [Norvasc] 7.5 mg PO DAILY 04/21/14 [History] Losartan [Cozaar] 50 mg PO DAILY 05/23/18 [History] Aspirin 81 mg PO DAILY 08/13/19 [History] Benzonatate [Tessalon Perle] 100 mg PO QID PRN 11/22/19 [History] Hydrochlorothiazide [Microzide] 12.5 mg PO DAILY 08/13/19 [History] atorvaSTATin Calcium [Atorvastatin Calcium] 20 mg PO DAILY 08/13/19 [History] Albuterol [Ventolin HFA] 1 puff .XX TID 09/12/19 [History] Past Medical History Cardiovascular History: Reports: High Cholesterol, Hypertension Respiratory History: Reports: Bronchitis, Recurrent, COPD, Pneumonia, Recurrent Other Respiratory History: Nodule to left lung Gastrointestinal History: Reports: Chronic Constipation, GERD Genitourinary History: Reports: None 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: Musculoskeletal History: Reports: Arthritis, Other (See Below) Other Musculoskeletal History: bunionectomy Neurological History: Reports: None Psychiatric History: Reports: None Endocrine/Metabolic History: Reports: None Hematologic History: Reports: None Immunologic History: Reports: None Oncologic (Cancer) History: Reports: None Dermatologic History: Reports: None - Infectious Disease History Infectious Disease History: Reports: None - Past Surgical History HEENT Surgical History: Reports: Cataract Surgery, Tonsillectomy Cardiovascular Surgical History: Reports: Other (See Below) Other Cardiovascular Surgeries/Procedures: carotid artery surgery Other Respiratory Surgeries/Procedures: Pt states that she had her "lungs cleaned out" due to mucus in the alveoli. Social & Family History - Family History Family Medical History: Noncontributory - Tobacco Use Smoking Status *Q: Never Smoker - Caffeine Use Caffeine Use: Reports: Coffee - Recreational Drug Use Recreational Drug Use: No - Living Situation & Occupation Living situation: Reports: Occupation: Retired ED ROS GENERAL - Review of Systems Review Of Systems: See Below Constitutional: Reports: Weakness. Denies: Fever, Chills HEENT: Denies: Rhinitis, Sinus Problem Respiratory: Reports: Wheezing, Cough. Denies: Shortness of Breath, Sputum Cardiovascular: Reports: Chest Pain, Other (The chest pain is from all her coughing) Endocrine: Reports: No Symptoms GI/Abdominal: Reports: Abdominal Pain, Other (The abdominal pain is from all her coughing ) Musculoskeletal: Reports: Other (As above) Skin: Reports: No Symptoms Neurological: Reports: No Symptoms Psychiatric: Reports: No Symptoms Hematologic/Lymphatic: Reports: No Symptoms ED EXAM, GENERAL - Physical Exam Exam: See Below Exam Limited By: No Limitations General Appearance: Alert, WD/WN, No Apparent Distress, Other (She is noted to have some fits of coughing while I am talking with her) Eye Exam: Bilateral Eye: Normal Inspection Ears: Normal External Exam, Normal Canal, Normal TMs Nose: Normal Inspection Throat/Mouth: Normal Inspection, Normal Lips, Normal Voice, No Airway Compromise Head: Normocephalic Neck: Supple Respiratory/Chest: No Respiratory Distress, Other (She does have some crackling noted in the right base of her lung, some of this seems to clear when she coughs ). No: Rhonchi, Wheezing Cardiovascular: Regular Rate, Rhythm, No Murmur GI/Abdominal: Soft Back Exam: Full Range of Motion Extremities: Normal Inspection, Normal Range of Motion Neurological: Alert, Oriented Psychiatric: Normal Affect, Normal Mood Skin Exam: Warm, Dry Course - Vital Signs Last Recorded V/S: Last Vital Signs Temp 97.9 F 09/12/19 05:40 Pulse 90 09/12/19 05:40 Resp 18 09/12/19 05:40 BP Pulse Ox 96 09/12/19 06:46 - Orders/Labs/Meds Orders: Active Orders 24 hr Category Date Time Status RT Aerosol Therapy [RC] ASDIRECTED Care 09/12/19 06:07 Active RT Chest Physiotherapy [RC] ASDIRECTED Care 09/12/19 06:44 Active CXR [Chest 1V Frontal] [CR] Stat Exams 09/12/19 06:53 Taken Meds: Medications Discontinued Medications Generic Name Dose Route Start Last Admin Trade Name Deja PRN Reason Stop Dose Admin Acetylcysteine 800 mg 09/12/19 06:07 09/12/19 06:17 Mucomyst 20% NEB 09/12/19 06:08 800 mg ONETIME ONE Administration Albuterol 2.5 mg 09/12/19 06:08 09/12/19 06:17 Proventil Neb Soln NEB 09/12/19 06:09 2.5 mg ONETIME ONE Administration - Radiology Interpretation Free Text/Narrative:: Chest x-ray does not show any acute findings - Re-Assessments/Exams Free Text/Narrative Re-Assessment/Exam: 09/12/19 06:15 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 09/12/19 06:43 After the combination of Mucomyst and albuterol she began to cough up a little more things phlegm and I can still hear the crackling in her lungs now bilaterally instead of just in the right lower lung. It does sound like she is got mucus trapping. 09/12/19 07:19 So despite hearing the crackling in her lungs bilaterally which suggest she has some mucus plugging or trapped the x-ray does not show any acute findings. The Mucomyst did seem to help her cough up more phlegm. We discussed at length that she needs to probably be referred to a scheduling representative or at least get some sort of pulmonary toilet done by physical therapy to see if they can break up the mucus so she can cough it up. Respiratory therapy also gave her a A chest physiotherapy device and that seemed to help her cough up some stuff as well. She is to use the chest physiotherapy every 2 hours. Encouraged her to follow-up with her family doctor on Friday and get a nebulizer at home so she can use Mucomyst and albuterol to help break up the mucus. Departure - Departure Time of Disposition: 07:21 Disposition: Home, Self-Care 01 Condition: Fair Clinical Impression: Persistent cough for 3 weeks or longer, Mucus plugging of bronchi - Discharge Information Referrals: Gamaliel Jacobs MD [Primary Care Provider] - Forms: ED Department Discharge Additional Instructions: Continue with the Tesbhavya Maces, but considered getting some Robitussin-DM or some Delsym that has dextromethorphan help control your cough. Use the chest physiotherapist device every 2 hours to help bring up the phlegm. Call your family doctor Friday morning and see if you can get a nebulizer at home so you can use the Mucomyst followed by albuterol to help break up the phlegm that seems to be trapped in the bottom of your lungs. Would use the nebulizer every 6 hours. I would request from your family doctor to be referred to a scheduling representative since many of your symptoms suggest mucous plugging in the bronchi. Also whether you might get some pulmonary toilet through respiratory therapy to see if they can break up mucus so you can cough it up. Return to the ER as needed Sepsis Event Note - Evaluation Sepsis Screening Result: No Definite Risk - Focused Exam Vital Signs: Vital Signs Temp Pulse Resp Pulse Ox Pulse Ox 09/12/19 06:46 96 09/12/19 06:21 94 L 09/12/19 05:40 97.9 F 90 18 94 L Date Exam was Performed: 09/12/19 Time Exam was Performed: 07:19 - My Orders Last 24 Hours: My Active Orders 09/12/19 06:07 RT Aerosol Therapy [RC] ASDIRECTED 09/12/19 06:44 RT Chest Physiotherapy [RC] ASDIRECTED 09/12/19 06:53 CXR [Chest 1V Frontal] [CR] Stat - Assessment/Plan Last 24 Hours: My Active Orders 09/12/19 06:07 RT Aerosol Therapy [RC] ASDIRECTED 09/12/19 06:44 RT Chest Physiotherapy [RC] ASDIRECTED 09/12/19 06:53 CXR [Chest 1V Frontal] [CR] Stat
--- NOTE | 2019-09-13 09:17 | CR ---
Chest: Portable view of the chest was obtained. Comparison: Prior chest x-ray of 08/13/19. Heart size is normal. Tortuous thoracic aorta is seen. Scarring is noted within the left base overlying the left cardiac apex. Minimal linear scarring is seen within the left midlung. Lungs otherwise are clear. Bony structures appear grossly intact. Impression: 1. Stable findings. 2. Nothing acute is seen. Diagnostic code #2 This report was dictated in [place] Standard Time
== END 2019-09-12 07:44 | disposition home or self-care (01) ==
LOC: JD.ED 05:16
DX: T17.590A Other foreign object in bronchus causing asphyxiation, initial encounter (principal); R05 Cough; E78.00 Pure hypercholesterolemia, unspecified; I10 Essential (primary) hypertension; J44.9 Chronic obstructive pulmonary disease, unspecified; Z79.899 Other long term (current) drug therapy; Z79.82 Long term (current) use of aspirin
CPT/HCPCS: 71045; 71045-26; 94640; 94667; 99285-25

== ENCOUNTER 2021-01-03 17:34 | Emergency (ER) | payer MEDICARE, BC ==
[2021-01-03] MEDS ORDERED: Sodium Chloride 0.9% 10 ML Syringe FLUSH PRN (18:24)
[2021-01-03] MEDS ORDERED: Ondansetron 4 MG/2 ML SDV IVPUSH ONE (18:25)
[2021-01-03] MEDS ORDERED: Sodium Chloride 0.9% 1,000 ML IV ONE (18:25)
[2021-01-03] MEDS ORDERED: Loperamide 2 MG Cap PO ONE (18:27)
--- NOTE | 2021-01-03 18:36 | EDM.PDOC ---
ED HPI GENERAL MEDICAL PROBLEM - General Chief Complaint: Abdominal Pain Stated Complaint: RASH/SHAKY Time Seen by Provider: 01/03/21 18:09 Source of Information: Reports: Patient, RN Notes Reviewed History Limitations: Reports: No Limitations - History of Present Illness INITIAL COMMENTS - FREE TEXT/NARRATIVE: Patient is an 85-year-old female who presents to the ED for her general feeling of being unwell. Patient noticed a rash develop on her abdomen the last few days, she notes that it started on her lower abdomen, but is working its way up, and has reached a level of her umbilicus. She states this is very itchy and aggravating however is not tender or painful. She has tried multiple creams to the area and nothing seems to be helping this. The rash itself is reddened, not raised, somewhat blotchy. She is also complaining of nausea with no vomiting, but she is having diarrhea. She is not complaining of any urinary symptoms like dysuria, frequency or urgency. She states that she woke up this morning and everything was pretty normal for her, she notes that she got shaky at breakfast time, but this has since subsided. She complains of a generalized stomachache. She denies being around anyone else has been sick however she did accompany her to the hospital for some tests performed yesterday. She notes that the symptoms worsened last night after she got back from the hospital. Patient has not had COVID-19, but did get her Covid 19 vaccination, last dose October 27. This was the Pfizer vaccine. Patient denies any new soaps or perfumes or detergents that she has been using, she denies any further medication changes. Primary care provider is Dr. Jacobs. She denies any fevers or chills, cough or shortness of breath, she denies any sort of chest pain. Abdominal Pain Score (Numeric/FACES): 3 - Related Data Allergies Allergy/AdvReac Type Severity Reaction Status Date / Time No Known Allergies Allergy Verified 01/03/21 17:57 Home Meds: Home Meds amLODIPine [Norvasc] 7.5 mg PO DAILY 04/21/14 [History] Losartan [Cozaar] 50 mg PO DAILY 05/23/18 [History] Aspirin 81 mg PO DAILY 08/13/19 [History] Benzonatate [Tessalon Perle] 100 mg PO QID PRN 08/13/19 [History] atorvaSTATin Calcium [Atorvastatin Calcium] 20 mg PO DAILY 08/13/19 [History] Ondansetron [Zofran ODT] 4 mg PO Q8H PRN #15 tab.dis 01/03/21 [Rx] predniSONE 20 mg PO ACBREAKFAST 5 Days #5 tab 01/03/21 [Rx] Past Medical History Cardiovascular History: Reports: High Cholesterol, Hypertension Respiratory History: Reports: Bronchitis, Recurrent, COPD, Pneumonia, Recurrent Other Respiratory History: Nodule to left lung Gastrointestinal History: Reports: Chronic Constipation, GERD Genitourinary History: Reports: None 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 Social & Family History - Family History Family Medical History: No Pertinent Family History - Tobacco Use Tobacco Use Status *Q: Former Tobacco User Used Tobacco, but Quit: Yes Month/Year Tobacco Last Used: 1974 - Caffeine Use Caffeine Use: Reports: Coffee - Recreational Drug Use Recreational Drug Use: No - Living Situation & Occupation Living situation: Reports: Occupation: Retired ED ROS GENERAL - Review of Systems Review Of Systems: Comprehensive ROS is negative, except as noted in HPI. ED EXAM, GI/ABD - Physical Exam Exam: See Below Exam Limited By: No Limitations General Appearance: Alert, WD/WN, No Apparent Distress Throat/Mouth: Normal Inspection, Normal Lips, Normal Teeth, Normal Gums, Normal Oropharynx, Normal Voice, No Airway Compromise Respiratory/Chest: No Respiratory Distress, Lungs Clear, Normal Breath Sounds, No Accessory Muscle Use, Chest Non-Tender Cardiovascular: Normal Peripheral Pulses, Regular Rate, Rhythm, No Edema GI/Abdominal Exam: Normal Bowel Sounds, Soft, Non-Tender, No Distention, No Mass Extremities: Normal Inspection, Normal Capillary Refill Neurological: Alert, Oriented, Normal Cognition, No Motor/Sensory Deficits Psychiatric: Normal Affect, Normal Mood Skin Exam: Warm, Dry, Intact, Normal Color, Rash (There is a raised erythematous area over the patient's abdomen, extending from her suprapubic area, to just the level of her umbilicus, to the lateral portions of her abdomen, this spares the flank, and seems to spare the umbilicus itself. She notes this is very itchy. This is more macular) Course - Vital Signs Last Recorded V/S: Last Vital Signs Temp 96.9 F 01/03/21 17:51 Pulse 77 01/03/21 17:51 Resp 18 01/03/21 17:51 BP 157/76 H 01/03/21 17:51 Pulse Ox 97 01/03/21 17:51 - Orders/Labs/Meds Orders: Active Orders 24 hr Category Date Time Status Peripheral IV Care [RC] . DIRECTED Care 01/03/21 18:25 Ordered UA W/MICROSCOPIC [URIN] Stat Lab 01/03/21 18:32 Ordered Sodium Chloride 0.9% [Saline Flush] Med 01/03/21 18:24 Active 10 ml FLUSH ASDIRECTED PRN Peripheral IV Insertion Adult [OM.PC] Routine Oth 01/03/21 18:24 Ordered Medication Orders Sodium Chloride (Sodium Chloride 0.9% 10 Ml Syringe) 10 ml FLUSH ASDIRECTED PRN PRN Reason: Keep Vein Open Last Admin: 01/03/21 19:37 Dose: 10 ml Documented by: MARIA Labs: Laboratory Tests 01/03/21 01/03/21 01/03/21 Range/Units 19:22 19:22 19:45 WBC 6.78 (3.98-10.04) K/mm3 RBC 4.30 (3.98-5.22) M/mm3 Hgb 13.3 (11.2-15.7) gm/dl Hct 40.4 (34.1-44.9) % MCV 94.0 D (79.4-94.8) fl MCH 30.9 (25.6-32.2) pg MCHC 32.9 (32.2-35.5) g/dl RDW Std Deviation 45.7 (36.4-46.3) fL Plt Count 301 (182-369) K/mm3 MPV 8.5 L (9.4-12.3) fl Neut % (Auto) 61.4 (34.0-71.1) % Lymph % (Auto) 21.5 (19.3-51.7) % [place] % (Auto) 11.1 (4.7-12.5) % Eos % (Auto) 5.6 (0.7-5.8) Baso % (Auto) 0.3 (0.1-1.2) % Neut # (Auto) 4.16 (1.56-6.13) K/mm3 Lymph # (Auto) 1.46 (1.18-3.74) K/mm3 [place] # (Auto) 0.75 H (0.24-0.36) K/mm3 Eos # (Auto) 0.38 H (0.04-0.36) K/mm3 Baso # (Auto) 0.02 (0.01-0.08) K/mm3 Sodium 141 (136-145) mEq/L Potassium 4.0 (3.5-5.1) mEq/L Chloride 102 (98-107) mEq/L Carbon Dioxide 27 (21-32) mEq/L Anion Gap 16.0 H (5-15) BUN 22 H (7-18) mg/dL Creatinine 1.1 H (0.55-1.02) mg/dL Est Cr Clr Drug Dosing 30.11 mL/min Estimated GFR (MDRD) 47 (>60) mL/min BUN/Creatinine Ratio 20.0 H (14-18) Glucose 96 (83-115) mg/dL Calcium 9.1 (8.5-10.1) mg/dL Total Bilirubin 0.8 (0.2-1.0) mg/dL AST 22 (15-37) U/L ALT 38 (14-59) U/L Alkaline Phosphatase 46 (46-116) U/L C-Reactive Protein <0.2 (<1.0) mg/dL Total Protein 7.3 (6.4-8.2) g/dl Albumin 3.7 (3.4-5.0) g/dl Globulin 3.6 gm/dL Albumin/Globulin Ratio 1.0 (1-2) Urine Color (Yellow) Urine Appearance (Clear) Urine pH (5.0-8.0) Ur Specific [place] (1.005-1.030) Urine Protein (Negative) Urine Glucose (UA) (Negative) Urine Ketones (Negative) Urine Occult Blood (Negative) Urine Nitrite (Negative) Urine Bilirubin (Negative) Urine Urobilinogen (0.2-1.0) Ur Leukocyte Esterase (Negative) Influenza Type A RNA Negative (NEGATIVE) Influenza Type B RNA Negative (NEGATIVE) SARS-CoV-2 RNA (LETY) Negative (NEGATIVE) 01/03/21 Range/Units 20:27 WBC (3.98-10.04) K/mm3 RBC (3.98-5.22) M/mm3 Hgb (11.2-15.7) gm/dl Hct (34.1-44.9) % MCV (79.4-94.8) fl MCH (25.6-32.2) pg MCHC (32.2-35.5) g/dl RDW Std Deviation (36.4-46.3) fL Plt Count (182-369) K/mm3 MPV (9.4-12.3) fl Neut % (Auto) (34.0-71.1) % Lymph % (Auto) (19.3-51.7) % [place] % (Auto) (4.7-12.5) % Eos % (Auto) (0.7-5.8) Baso % (Auto) (0.1-1.2) % Neut # (Auto) (1.56-6.13) K/mm3 Lymph # (Auto) (1.18-3.74) K/mm3 [place] # (Auto) (0.24-0.36) K/mm3 Eos # (Auto) (0.04-0.36) K/mm3 Baso # (Auto) (0.01-0.08) K/mm3 Sodium (136-145) mEq/L Potassium (3.5-5.1) mEq/L Chloride (98-107) mEq/L Carbon Dioxide (21-32) mEq/L Anion Gap (5-15) BUN (7-18) mg/dL Creatinine (0.55-1.02) mg/dL Est Cr Clr Drug Dosing mL/min Estimated GFR (MDRD) (>60) mL/min BUN/Creatinine Ratio (14-18) Glucose (83-115) mg/dL Calcium (8.5-10.1) mg/dL Total Bilirubin (0.2-1.0) mg/dL AST (15-37) U/L ALT (14-59) U/L Alkaline Phosphatase (46-116) U/L C-Reactive Protein (<1.0) mg/dL Total Protein (6.4-8.2) g/dl Albumin (3.4-5.0) g/dl Globulin gm/dL Albumin/Globulin Ratio (1-2) Urine Color Yellow (Yellow) Urine Appearance Clear (Clear) Urine pH 6.5 (5.0-8.0) Ur Specific [place] 1.020 (1.005-1.030) Urine Protein Negative (Negative) Urine Glucose (UA) Negative (Negative) Urine Ketones Negative (Negative) Urine Occult Blood Negative (Negative) Urine Nitrite Negative (Negative) Urine Bilirubin Negative (Negative) Urine Urobilinogen 0.2 (0.2-1.0) Ur Leukocyte Esterase Negative (Negative) Influenza Type A RNA (NEGATIVE) Influenza Type B RNA (NEGATIVE) SARS-CoV-2 RNA (LETY) (NEGATIVE) Meds: Medications Generic Name Dose Route Start Last Admin Trade Name Freq PRN Reason Stop Dose Admin Sodium Chloride 10 ml 01/03/21 18:24 01/03/21 19:37 Sodium Chloride 0.9% 10 Ml Syringe FLUSH 10 ml ASDIRECTED PRN Administration Keep Vein Open Discontinued Medications Generic Name Dose Route Start Last Admin Trade Name Freq PRN Reason Stop Dose Admin Sodium Chloride 1,000 mls @ 999 mls/hr 01/03/21 18:25 01/03/21 19:35 Normal Saline IV 01/03/21 19:25 999 mls/hr ONETIME ONE Administration Loperamide HCl 4 mg 01/03/21 18:27 01/03/21 19:37 Loperamide 2 Mg Cap PO 01/03/21 18:28 4 mg ONETIME ONE Administration Ondansetron HCl 4 mg 01/03/21 18:25 01/03/21 19:36 Ondansetron 4 Mg/2 Ml Sdv IVPUSH 01/03/21 18:26 4 mg ONETIME ONE Administration - Re-Assessments/Exams Free Text/Narrative Re-Assessment/Exam: 01/03/21 18:35 Patient presents to the ER for her generalized sick symptoms. Highly likely she could be suffering from the viral gastroenteritis bug, that has been known to be in the community. However the rash vexes me somewhat, I will have Dr. Luna go take a peek at it, to see if there is anything he can deduce that I have not thought of. In the meantime, we will get an IV established, give her some fluids and nausea meds, and get some basic labs. We will do flat and upright abdomen x-rays to check bowel/gas pattern. 01/03/21 19:13 Patient's x-ray has been taken, there is no acute processes noted on this x-ray. I appreciated a large stool burden within the right colon, and at the flexure of the transverse to the descending colon. 01/03/21 20:04 Patient's labs have completed preliminarily, her CBC is essentially unremarkable, CMP does demonstrate that she is mildly dry, so the IV fluid should help with this. Still awaiting urinalysis results, COVID-19 screen is pending. Again this is highly likely she could have the viral gastroenteritis that has been going around the community. 01/03/21 20:15 Patient states she is feeling better with the Zofran, and some of the fluids. Plan is to hopefully send her home with a course of Zofran for her nausea, and a small burst of prednisone for the rash on her abdomen. Patient is okay with this plan at this time. She states that she feels like she has to use the bathroom shortly so will be able to provide us with a urine sample. 01/03/21 20:57 Patient's urine sample demonstrates no sign of acute infection. The SARS Covid 19 and flu swab were both negative for today's purposes. We will go ahead and get the patient home with general recommendations, and a course of Zofran and prednisone for the rash on her belly. Departure - Departure Time of Disposition: 20:58 Disposition: Home, Self-Care 01 Condition: Good Clinical Impression: Viral gastroenteritis Contact dermatitis Qualifiers: Contact dermatitis type: irritant Contact dermatitis trigger: unspecified trigger Qualified Code(s): L24.9 - Irritant contact dermatitis, unspecified cause - Discharge Information *PRESCRIPTION DRUG MONITORING PROGRAM REVIEWED*: No *COPY OF PRESCRIPTION DRUG MONITORING REPORT IN PATIENT [place]NA[place]KA: No Prescriptions: predniSONE 20 mg PO ACBREAKFAST 5 Days #5 tab Ondansetron [Zofran ODT] 4 mg PO Q8H PRN #15 tab.dis PRN Reason: Nausea Instructions: Viral Gastroenteritis, Adult, [id number], Contact Dermatitis, [id number] Referrals: Gamaliel Jacobs MD [Primary Care Provider] - Forms: ED Department Discharge Additional Instructions: You have been evaluated in the ED for nausea/diarrhea. It is likely that this is caused from a viral gastroenteritis. Your laboratory evaluation done at today's visit was unremarkable. You were slightly dehydrated by lab standards. You have received IV fluid in the ED to help with the dehydration from the diarrhea. Over the next 24-48 hours please try to limit diet to clear liquids and advance as tolerated to a bland diet to alleviate symptoms of nausea/vomiting/diarrhea. Please use the Zofran every 8 hours as needed for nausea. This medication was electronically sent to the [place] pharmacy located in the [employer] store. You were also given a short dose of prednisone, for the rash on your abdomen, you will need to take 1 tab with breakfast for the next 5 days, to help provide relief from the rash. Please do not continue to use any sort of creams to the area, if you must use lotion, use an unscented on perfumed lotion like Lubriderm or CeraVe Please return to the ED if your symptoms should change or worsen. Sepsis Event Note (ED) - Evaluation Sepsis Screening Result: No Definite Risk - Focused Exam Vital Signs: Vital Signs Temp Pulse Resp BP Pulse Ox 01/03/21 17:51 96.9 F 77 18 157/76 H 97 - My Orders Last 24 Hours: My Active Orders 01/03/21 18:24 Sodium Chloride 0.9% [Saline Flush] 10 ml FLUSH ASDIRECTED PRN Peripheral IV Insertion Adult [OM.PC] Routine 01/03/21 18:25 Peripheral IV Care [RC] . DIRECTED 01/03/21 18:32 UA W/MICROSCOPIC [URIN] Stat - Assessment/Plan Last 24 Hours: My Active Orders 01/03/21 18:24 Sodium Chloride 0.9% [Saline Flush] 10 ml FLUSH ASDIRECTED PRN Peripheral IV Insertion Adult [OM.PC] Routine 01/03/21 18:25 Peripheral IV Care [RC] . DIRECTED 01/03/21 18:32 UA W/MICROSCOPIC [URIN] Stat
--- NOTE | 2021-01-03 19:11 | CR ---
Abdomen: Supine and upright views of the abdomen were obtained. Comparison: No prior abdominal imaging is available. Bowel gas pattern appears normal. Calcifications are seen within the pelvis most likely due to phleboliths. Bony structures are within normal limits for the patient's age. No free air is seen. Impression: 1. Nothing acute is seen on 2 view abdominal x-ray. Diagnostic code #2
[2021-01-03 20:28] LABS: CORONAVIRUS COVID-19 NAA NEGATIVE (NEGATIVE)
== END 2021-01-03 21:10 | disposition home or self-care (01) ==
LOC: JD.ED 17:34
DX: L24.9 Irritant contact dermatitis, unspecified cause (principal); A08.4 Viral intestinal infection, unspecified; E78.00 Pure hypercholesterolemia, unspecified; I10 Essential (primary) hypertension; J44.9 Chronic obstructive pulmonary disease, unspecified; M19.90 Unspecified osteoarthritis, unspecified site; Z79.82 Long term (current) use of aspirin; Z79.899 Other long term (current) drug therapy; Z20.822 Contact with and (suspected) exposure to COVID-19; Z87.891 Personal history of nicotine dependence
CPT/HCPCS: 0240U; 36415; 74019; 80053; 81001; 85025; 86140; 96374; 99284; A9270; J2405; J7030

== ENCOUNTER 2022-11-20 19:55 | Emergency (ER) | payer MEDICARE, BC ==
[2022-11-20] MEDS ORDERED: Sodium Chloride 0.9% 10 ML Syringe FLUSH PRN (20:21)
[2022-11-20] MEDS ORDERED: Ondansetron 4 MG/2 ML SDV IVPUSH ONE (20:21)
[2022-11-20] MEDS ORDERED: Sodium Chloride 0.9% 1,000 ML IV ONE (20:21)
[2022-11-20] MEDS ORDERED: Iopamidol 612 MG/ML 100 ML Bottle IVPUSH ONE (22:09)
== END 2022-11-20 23:12 | disposition home or self-care (01) ==
LOC: JD.ED 19:55
DX: R10.84 Generalized abdominal pain (principal); E78.00 Pure hypercholesterolemia, unspecified; I10 Essential (primary) hypertension; J44.9 Chronic obstructive pulmonary disease, unspecified; K21.9 Gastro-esophageal reflux disease without esophagitis; Z79.82 Long term (current) use of aspirin; Z79.899 Other long term (current) drug therapy
CPT/HCPCS: 36415; 74177; 80053; 81001; 83690; 83735; 85025; 86140; 96361; 96374; 99284; J2405; J3490; J7030; Q9967

== ENCOUNTER 2022-12-23 10:39 | Emergency (ER) | payer MEDICARE, BC ==
[2022-12-23] MEDS ORDERED: Sodium Chloride 0.9% 10 ML Syringe FLUSH PRN (11:16)
[2022-12-23] MEDS ORDERED: REMDESIVIR 200 MG in Sodium Chloride 0.9% 250 ML IV ONE (12:20)
== END 2022-12-23 13:55 | disposition home or self-care (01) ==
LOC: JD.ED 10:39
DX: U07.1 COVID-19 (principal); E78.00 Pure hypercholesterolemia, unspecified; I10 Essential (primary) hypertension; K21.9 Gastro-esophageal reflux disease without esophagitis; J44.9 Chronic obstructive pulmonary disease, unspecified; Z86.16 Personal history of COVID-19; Z79.899 Other long term (current) drug therapy; Z79.82 Long term (current) use of aspirin
CPT/HCPCS: 36415; 71045; 80053; 85025; 86140; 96365; 99283; J0248; J3490; J7050; 99284

== ENCOUNTER 2023-09-28 10:07 | Emergency (ER) | payer MEDICARE, BC ==
[2023-09-28] MEDS ORDERED: Thrombin (Bovine) 5,000 Unit Kit INJECT ONE (11:01)
[2023-09-28 11:25] LABS: BASOPHILS PERCENT AUTO 0.6 % (0.0-1.0); EOSINOPHILS ABSOLUTE AUTO 0.6 K/mm3 (0.0-0.4); EOSINOPHILS PERCENT AUTO 8.7 % (0.0-6.0); HEMATOCRIT 40.5 % (37.0-47.0); HEMOGLOBIN 13.2 gm/dl (12.0-16.0); IMMATURE GRAN ABSOLUTE AUTO 0.02 K/mm3 (0.00-0.05); IMMATURE GRAN PERCENT AUTO 0.3 % (0.0-0.4); LYMPHOCYTES ABSOLUTE AUTO 1.1 K/mm3 (1.0-4.8); LYMPHOCYTES PERCENT AUTO 15.4 % (24.0-44.0); MEAN CORPUSCULAR HGB CONC 32.6 g/dl (32.0-36.0); MEAN PLATELET VOLUME 8.3 fl (9.4-12.3); MONOCYTES ABSOLUTE AUTO 0.6 K/mm3 (0.0-0.8); MONOCYTES PERCENT AUTO 8.7 % (0.0-8.0); NEUTROPHILS ABSOLUTE AUTO 4.7 K/mm3 (1.8-7.7); NEUTROPHILS PERCENT AUTO 66.3 % (41.0-71.0); PLATELET COUNT,PLT 256 K/mm3 (150-400); WHITE BLOOD CELL COUNT,WBC 7.12 K/mm3 (3.9-11.3)
[2023-09-28 11:54] LABS: CORONAVIRUS COVID-19 NAA NEGATIVE (NEGATIVE); INFLUENZA A NAA NEGATIVE (NEGATIVE); RESPIRATORY SYNCYTIAL VIR NAA NEGATIVE (NEGATIVE)
== END 2023-09-28 12:48 | disposition home or self-care (01) ==
LOC: JD.ED 10:07
DX: R04.0 Epistaxis (principal); J06.9 Acute upper respiratory infection, unspecified; I10 Essential (primary) hypertension; J44.9 Chronic obstructive pulmonary disease, unspecified; E78.00 Pure hypercholesterolemia, unspecified; Z86.16 Personal history of COVID-19; Z79.82 Long term (current) use of aspirin; Z79.899 Other long term (current) drug therapy; Z20.822 Contact with and (suspected) exposure to COVID-19
CPT/HCPCS: 0241U; 36415; 85025; 99283

== ENCOUNTER 2023-11-14 14:47 | Emergency (ER) | payer BC, MEDICARE ==
[2023-11-14] MEDS: Sodium Chloride 0.9% 10 ML Syringe FLUSH PRN (15:05)
[2023-11-14 15:28] LABS: BASOPHILS ABSOLUTE AUTO 0.1 K/mm3 (0.0-0.2); BASOPHILS PERCENT AUTO 0.6 % (0.0-1.0); EOSINOPHILS ABSOLUTE AUTO 0.5 K/mm3 (0.0-0.4); HEMATOCRIT 42.2 % (37.0-47.0); HEMOGLOBIN 14.2 gm/dl (12.0-16.0); IMMATURE GRAN ABSOLUTE AUTO 0.02 K/mm3 (0.00-0.05); IMMATURE GRAN PERCENT AUTO 0.2 % (0.0-0.4); LYMPHOCYTES ABSOLUTE AUTO 1.4 K/mm3 (1.0-4.8); LYMPHOCYTES PERCENT AUTO 15.2 % (24.0-44.0); MEAN CORPUSCULAR HEMOGLOBIN 30.7 pg (28.0-32.0); MEAN CORPUSCULAR HGB CONC 33.6 g/dl (32.0-36.0); MEAN CORPUSCULAR VOLUME 91.3 fl (83.0-99.0); MEAN PLATELET VOLUME 8.8 fl (9.4-12.3); MONOCYTES ABSOLUTE AUTO 0.8 K/mm3 (0.0-0.8); MONOCYTES PERCENT AUTO 8.6 % (0.0-8.0); NEUTROPHILS ABSOLUTE AUTO 6.3 K/mm3 (1.8-7.7); NEUTROPHILS PERCENT AUTO 69.4 % (41.0-71.0); PLATELET COUNT,PLT 277 K/mm3 (150-400); RED BLOOD CELL COUNT 4.62 M/mm3 (4.10-5.30); WHITE BLOOD CELL COUNT,WBC 9.04 K/mm3 (3.9-11.3)
[2023-11-14] MEDS ORDERED: Dextrose 5%-0.9% NaCl 1,000 ML IV SCH (15:30)
[2023-11-14 15:39] LABS: A/G RATIO 0.9 (1-2); ALBUMIN 3.9 g/dl (3.4-5.0); ANION GAP 13.3 (5-15); CALCIUM 9.9 mg/dL (8.5-10.1); EST CRCL DRUG DOSING (CG) 29.91 mL/min; PROTEIN TOTAL,TP 8.3 g/dl (6.4-8.2)
[2023-11-14 15:42] LABS: POTASSIUM,K 4.3 mEq/L (3.5-5.1)
[2023-11-14] MEDS: Sodium Chloride 0.9% 10 ML Syringe FLUSH ONE (16:05)
[2023-11-14] MEDS: Iopamidol 755 Mg/ML 100 ML Bottle IVPUSH ONE (16:05)
[2023-11-14] MEDS: Sodium Chloride 0.9% 100 ML IV SCH (16:06)
[2023-11-14] MEDS: Heparin Sodium 5,000 Units/ML Vial IVPUSH ONE (18:48)
[2023-11-14] MEDS: Heparin Sodium/D5W 25,000 UNITS/500 ML BAG IV SCH (18:49)
== END 2023-11-14 20:10 ==
LOC: JD.ED 14:47
DX: I20.0 Unstable angina (principal); R42 Dizziness and giddiness; R07.9 Chest pain, unspecified; I10 Essential (primary) hypertension; J44.9 Chronic obstructive pulmonary disease, unspecified; Z86.16 Personal history of COVID-19; Z79.899 Other long term (current) drug therapy
CPT/HCPCS: 36415; 71045; 71045-26; 71275; 71275-26; 80053; 83735; 84484; 85025; 85379; 93005; 96365; 99285-25; J1644; J3490; Q9967

== ENCOUNTER 2024-07-24 12:27 | Emergency (ER) | payer MEDICARE, OTHER ==
[2024-07-24 13:12] LABS: BASOPHILS ABSOLUTE AUTO 0.1 K/mm3 (0.0-0.2); BASOPHILS PERCENT AUTO 0.9 % (0.0-1.0); EOSINOPHILS ABSOLUTE AUTO 0.7 K/mm3 (0.0-0.4); EOSINOPHILS PERCENT AUTO 12.2 % (0.0-6.0); HEMATOCRIT 39.6 % (37.0-47.0); HEMOGLOBIN 13.4 gm/dl (12.0-16.0); IMMATURE GRAN ABSOLUTE AUTO 0.02 K/mm3 (0.00-0.05); IMMATURE GRAN PERCENT AUTO 0.4 % (0.0-0.4); LYMPHOCYTES ABSOLUTE AUTO 1.1 K/mm3 (1.0-4.8); LYMPHOCYTES PERCENT AUTO 19.5 % (24.0-44.0); MEAN CORPUSCULAR HEMOGLOBIN 30.7 pg (28.0-32.0); MEAN CORPUSCULAR HGB CONC 33.8 g/dl (32.0-36.0); MEAN CORPUSCULAR VOLUME 90.6 fl (83.0-99.0); MEAN PLATELET VOLUME 8.4 fl (9.4-12.3); MONOCYTES ABSOLUTE AUTO 0.6 K/mm3 (0.0-0.8); MONOCYTES PERCENT AUTO 10.8 % (0.0-8.0); NEUTROPHILS ABSOLUTE AUTO 3.1 K/mm3 (1.8-7.7); NEUTROPHILS PERCENT AUTO 56.2 % (41.0-71.0); PLATELET COUNT,PLT 285 K/mm3 (150-400); RED BLOOD CELL COUNT 4.37 M/mm3 (4.10-5.30); WHITE BLOOD CELL COUNT,WBC 5.48 K/mm3 (3.9-11.3)
[2024-07-24] MEDS: Albuterol/Ipratropium 3.0-0.5 MG/3 ML Neb Soln NEB ONE (13:31)
[2024-07-24 13:41] LABS: A/G RATIO 1.1 (1-2); ALBUMIN 3.6 g/dl (3.4-5.0); ANION GAP 14.1 (5-15); BUN/CREATININE RATIO 12.5 (14-18); CREATININE 1.2 mg/dL (0.55-1.02); EST CRCL DRUG DOSING (CG) 24.45 mL/min; POTASSIUM,K 4.1 mEq/L (3.5-5.1); PROTEIN TOTAL,TP 6.9 g/dl (6.4-8.2)
[2024-07-24 13:51] LABS: CORONAVIRUS COVID-19 NAA NEGATIVE (NEGATIVE); INFLUENZA A NAA NEGATIVE (NEGATIVE); RESPIRATORY SYNCYTIAL VIR NAA NEGATIVE (NEGATIVE)
== END 2024-07-24 15:13 | disposition home or self-care (01) ==
LOC: JD.ED 12:27
DX: J06.9 Acute upper respiratory infection, unspecified (principal); B97.89 Other viral agents as the cause of diseases classified elsewhere; I10 Essential (primary) hypertension; J44.9 Chronic obstructive pulmonary disease, unspecified; Z86.16 Personal history of COVID-19; Z90.89 Acquired absence of other organs; Z79.899 Other long term (current) drug therapy
CPT/HCPCS: 0241U; 36415; 71045; 80053; 83880; 85025; 93005; 94640; 99285; J7620-GY